=== PATIENT | male | born 1955 | race Caucasian/White ===

== ENCOUNTER → 2021-09-02 | Day surgery (SDC) | payer OTHER ==
[~2021-09-02] VITALS: Ht 185.4 cm; Wt 112.5 kg
[~2021-09-02] MED LIST: NORCO7.5 PO
[2021-09-02 09:03] VITALS: BP 115/71
--- NOTE | 2021-09-06 06:20 | O ---
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 PROCEDURE: Full-thickness excision of right lower lid with myocutaneous flap repair of defect and correction of entropion. SURGEON: Toni Lorenzo MD CRIME VICTIM SPECIALIST: None. ANESTHESIA: MAC. COMPLICATIONS: None. 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 He presents today for a right lower lid surgery in order to attempt to improve his ocular surface milieu and quality of visual function. Informed consent was obtained to include, but not limited to the potential risk for loss of vision, bleeding, infection, failure to improve the problem, the potential need for further surgery or treatment. DESCRIPTION OF PROCEDURE: The patient was taken to the operating room where 2% Xylocaine with epinephrine mixed with equal parts of 0.75% Marcaine with Wydase was administered transcutaneously and transconjunctivally to the right lower lid, the right lateral canthus, the right infratemporal fossa and the right cheek. The patient was subsequently prepped and draped in the usual sterile fashion. The lid was then inspected and the area of the abnormal lashes in the central lid was then outlined with a fine tip skin marking pen. The incisions were then made perpendicularly across the eyelid margin to remove all of this area with the dissection being drawn down to a point in the premalar tissues. Hemostasis was then re-achieved. [address] [address] OPERATIVE REPORT Name: ZAHRA HAMLIN Room #: [facility] M.R.#: [id number] Admission: 09/02/21 Attend Phys: Toni Lorenzo MD Discharge: Date of : 51 Report #: [id number] A myocutaneous flap was then developed laterally to correct the defect in the right lower lid. Hemostasis was then re-achieved. That flap was then advanced and secured with multi-layered deep closure of interrupted 5-0 Vicryl sutures. The tarsal plate was reapproximated with interrupted 5-0 Vicryl sutures. The eyelid margin was reapproximated with interrupted 7-0 Vicryl sutures. The subcutaneous structures and the skin were then closed with interrupted Vicryl sutures deep and then a final closure of 6-0 plain gut sutures. The wounds were then cleaned and dressed with erythromycin ophthalmic ointment and the patient subsequently transported to the recovery area having tolerated the procedures well with no anesthetic or operative complications being noted. <ELECTRONICALLY SIGNED> By: oTni Lorenzo MD 09/06/21 0620 [id number] Toni Lorenzo MD /nt
== END | disposition home or self-care (01) ==
LOC: OR 06:44 → EDSTATUS 15:11 → OR 15:46
PROVIDERS: ATTEND Ophthalmology
DX: H02.012 Cicatricial entropion of right lower eyelid (principal); H18.9 Unspecified disorder of cornea; Z98.890 Other specified postprocedural states; Z79.899 Other long term (current) drug therapy; Z87.891 Personal history of nicotine dependence; Z85.72 Personal history of non-Hodgkin lymphomas; Z87.442 Personal history of urinary calculi; Z90.5 Acquired absence of kidney; Z20.822 Contact with and (suspected) exposure to COVID-19
CPT/HCPCS: 50010; 50101; 50386; 50398; 51636; 56528; 56531; 62110; 62850; 70005